=== PATIENT | female | born 1995 | race Caucasian/White ===

== ENCOUNTER 2019-03-28 18:51 | Emergency (ER) | payer SELFPAY ==
[~2019-03-28] VITALS: Ht 162.6 cm; Wt 56.0 kg
[2019-03-28] MEDS ORDERED: SODIUM CHLORIDE 0.9% 1,000 ML IV ONE ×2 (19:45→22:00)
[2019-03-28] MEDS ORDERED: LORAZEPAM 2MG/ML CPJ IV ONE (19:45)
[2019-03-28 20:23] LABS: CHLORIDE 103 mEq/L (98-107)
[2019-03-28 20:26] LABS: BASOPHILS % 0.2 % (0.0-2.0); EOSINOPHILS % 0.3 % (0.0-5.0); HEMATOCRIT. 36.2 % (36.0-48.0); HEMOGLOBIN. 12.3 g/dL (12.0-16.0); MEAN CORPUSCULAR HEMOGLOBIN 31.1 pg (28.0-32.0); MEAN CORPUSCULAR VOLUME 91.7 fL (81.0-99.0); MONOCYTES % 10.3 % (2.0-8.0); NEUTROPHILS % 73.2 % (40.0-76.0); PLATELET 265 x1000/uL (130-400); RED BLOOD CELL COUNT 3.95 mill/uL (4.2-5.4); RED CELL DISTRIBUTION WIDTH 12.4 % (11.6-14.6)
[2019-03-28 20:27] LABS: ETHANOL BLOOD < 10 mg/dL
[2019-03-28 20:43] LABS: HCG SCREEN NEGATIVE
[2019-03-29 04:09] VITALS: BP 145/75
== END 2019-03-29 04:38 | disposition home or self-care (01) ==
LOC: ER 19:00
DX: F12.10 Cannabis abuse, uncomplicated (principal); E11.9 Type 2 diabetes mellitus without complications; I10 Essential (primary) hypertension
CPT/HCPCS: 36415; 80053; 80320; 84703; 85025; 93005; 96374; 99284; J2060; J7030; G0480